=== PATIENT | female | born 1945 | race Caucasian/White ===

== ENCOUNTER 2019-05-05 16:23 | Inpatient (IN) | payer OTHER ==
[~2019-05-05] VITALS: Ht 157.5 cm; Wt 88.5 kg
[2019-05-05 16:25] VITALS: BP 122/63
[2019-05-05] MEDS ORDERED: KEFLEX500 M1 PO (16:29)
[2019-05-05] MEDS ORDERED: BENTYL 10 MG CA10 M1 PO (16:30)
[2019-05-05] MEDS ORDERED: ASPIR 8181 MG PO (16:30)
[2019-05-05] MEDS ORDERED: TYLENOL EXTRA500 MG PO (16:30)
[2019-05-05] MEDS ORDERED: TUMS PO ×2 (16:30)
[2019-05-05] MEDS ORDERED: OMEGA 3 1,0001 EACH PO (16:31)
[2019-05-05] MEDS ORDERED: FLEXERIL PO (16:31)
[2019-05-05] MEDS ORDERED: BENADRYL25 MG PO (16:31)
[2019-05-05] MEDS ORDERED: CARDIZEM CD120 MG PO (16:31)
[2019-05-05] MEDS ORDERED: FLONASE 0.05%50 MCG NASAL (16:32)
[2019-05-05] MEDS ORDERED: LASIX 40 MG TAB40 M2 PO (16:32)
[2019-05-05] MEDS ORDERED: GAS-X180 MG PO (16:32)
[2019-05-05] MEDS ORDERED: COZAAR 25 MG TA25 M1 PO (16:33)
[2019-05-05] MEDS ORDERED: SINGULAIR 10 MG10 M1 PO (16:33)
[2019-05-05] MEDS ORDERED: LOPERAMIDE 2 MG2 M1 PO (16:33)
[2019-05-05] MEDS ORDERED: IBUPROFEN 800800 M1 PO (16:33)
[2019-05-05] MEDS ORDERED: CLARITIN10 MG PO (16:33)
[2019-05-05] MEDS ORDERED: ZANTAC 150MG T150 MG PO (16:34)
[2019-05-05] MEDS ORDERED: PROPRANOLOL 1010 MG PO (16:34)
[2019-05-05] MEDS ORDERED: NEPHRO-VITE TA0.8 MG PO (16:34)
[2019-05-05] MEDS ORDERED: PROBIOTIC1 EAC1 PO (16:34)
[2019-05-05] MEDS ORDERED: PROTONIX40 M1 PO (16:34)
[2019-05-05] MEDS ORDERED: VITAMIN D3400 UNIT PO (16:35)
[2019-05-05] MEDS ORDERED: HALCION0.25 MG PO (16:35)
[2019-05-05] MEDS ORDERED: OCUVITE ADULT1 EAC1 PO (16:35)
--- NOTE | 2019-05-05 16:58 | NUR ---
THIS NURSE CALLED [facility] IN [place], [place]. THIS NURSE SPOKE WITH XAVI, WHO IS THE ICT QUALITY ASSURANCE ENGINEER FOR [facility]. XAVI STATED THAT "PT HAS HAD INCREASED CONFUSION SINCE Wednesday". XAVI STATED THAT PT HAS "FREQUENT UTIS". XAVI STATED THAT "WHEN THE HOME HEALTH NURSE VISITED THE PT TODAY, PT HAD A EMPTY POT ON THE HOT STOVE THAT SHE HAD FORGOTTEN ABOUT".
[2019-05-05 17:00] LABS: ABSOLUTE BASOPHILS 0.1 thou/uL (0.0-0.2); ABSOLUTE EOSINOPHILS 0.6 thou/uL (0.0-0.7); ABSOLUTE LYMPHOCYTES 1.3 thou/uL (0.8-5.3); ABSOLUTE MONOCYTES 0.6 thou/uL (0.0-1.2); ABSOLUTE NEUTROPHILS 5.9 thou/uL (1.6-8.1); BASOPHILS 1.6 %; EOSINOPHILS 6.5 %; HEMATOCRIT 38.8 % (37.0-47.0); HEMOGLOBIN 12.9 gm/dL (12.0-15.0); LYMPHOCYTES 15.5 %; MCH 28.6 pg (26.0-34.0); MCHC 33.3 g/dL (28.0-37.0); MCV 85.9 fL (80.0-100.0); MONOCYTES 7.2 %; MPV 8.3 fl. (7.2-11.1); NUCLEATED RBCS 0 /100WBC; PLATELET COUNT* 319 thou/uL (150-400); POLYS 69.2 %; RBC 4.52 mil/uL (4.20-5.00); RDW-CV 14.2 % (10.5-14.5); WBC 8.5 thou/uL (4.0-11.0)
--- NOTE | 2019-05-05 17:05 | NUR ---
DR. FELDER AT BEDSIDE WITH PT
[2019-05-05 17:07] LABS: INR 1.1; PROTIME 10.8 Seconds (9.20-11.50)
[2019-05-05 17:08] LABS: ANION GAP 9 mmol/L (7-16); BUN 22 mg/dL (7-18); CALCIUM 9.6 mg/dL (8.5-10.1); CHLORIDE 105 mmol/L (98-107); CO2 28 mmol/L (21-32); CREATININE 1.1 mg/dL (0.6-1.3); GLUCOSE 79 mg/dL (70-99); POTASSIUM 3.9 mmol/L (3.5-5.1); SODIUM 142 mmol/L (136-145)
[2019-05-05 17:18] LABS: ALBUMIN 3.5 g/dL (3.4-5.0); ALKALINE PHOSPHATASE 94 U/L (46-116); NT-PRO BRAIN NAT PEPTIDE 282 pg/mL (<300); SGOT 30 U/L (15-37); SGPT 43 U/L (30-65); TOTAL BILIRUBIN 0.4 mg/dL (<0.1-1.0); TOTAL PROTEIN 7.3 g/dL (6.4-8.2); TROPONIN-I LEVEL <0.06 ng/mL (<0.06)
[2019-05-05 18:14] LABS: URINE BILIRUBIN NEGATIVE (Negative); URINE BLOOD NEGATIVE (Negative); URINE CLARITY CLEAR; URINE COLOR YELLOW; URINE GLUCOSE-RANDOM NEGATIVE (Negative); URINE KETONES NEGATIVE (Negative); URINE LEUKOCYTES-REFLEX NEGATIVE (Negative); URINE NITRITE-REFLEX NEGATIVE (Negative); URINE PROTEIN NEGATIVE (Negative); URINE UROBILINOGEN 0.2 E.U./dl (0.2-1.0)
[2019-05-05 19:40] VITALS: BP 124/64
[2019-05-05 20:30] VITALS: BP 104/48
[2019-05-06] MEDS ORDERED: ACYCLOVIR 400400 MG PO (03:29)
[2019-05-06] MEDS ORDERED: CRANBERRY450 M1 PO (03:30)
[2019-05-06] MEDS ORDERED: FLUTICASONE-SA1 EAC3 INH (03:39)
[2019-05-06] MEDS ORDERED: MOBIC15 MG PO (03:45)
[2019-05-06] MEDS ORDERED: OXYBUTYNIN 5 MG5 M2 PO (03:49)
[2019-05-06] MEDS ORDERED: POTASSIUM20 PO (03:50)
[2019-05-06] MEDS ORDERED: CENTRUM SILVER1 EAC4 PO (03:55)
[2019-05-06] MEDS ORDERED: VANCOCIN 125 M125 M1 PO (03:57)
[2019-05-06 04:00] VITALS: BP 128/53
[2019-05-06 05:03] LABS: ABSOLUTE BASOPHILS 0.1 thou/uL (0.0-0.2); ABSOLUTE EOSINOPHILS 0.5 thou/uL (0.0-0.7); ABSOLUTE LYMPHOCYTES 1.7 thou/uL (0.8-5.3); ABSOLUTE MONOCYTES 0.5 thou/uL (0.0-1.2); ABSOLUTE NEUTROPHILS 5.1 thou/uL (1.6-8.1); BASOPHILS 1.1 %; EOSINOPHILS 6.7 %; HEMATOCRIT 33.8 % (37.0-47.0); HEMOGLOBIN 11.2 gm/dL (12.0-15.0); LYMPHOCYTES 21.9 %; MCH 28.7 pg (26.0-34.0); MCHC 33.1 g/dL (28.0-37.0); MCV 86.7 fL (80.0-100.0); MPV 8.3 fl. (7.2-11.1); NUCLEATED RBCS 0 /100WBC; PLATELET COUNT* 254 thou/uL (150-400); POLYS 64.3 %; RBC 3.89 mil/uL (4.20-5.00); RDW-CV 14.1 % (10.5-14.5); WBC 7.9 thou/uL (4.0-11.0)
[2019-05-06 05:17] LABS: CALCIUM 8.9 mg/dL (8.5-10.1); CREATININE 1.1 mg/dL (0.6-1.3); MAGNESIUM 1.5 mg/dL (1.8-2.4); POTASSIUM 3.7 mmol/L (3.5-5.1)
[2019-05-06 09:00] VITALS: BP 141/60
--- NOTE | 2019-05-06 09:00 | NUR ---
ASSUMED CARE OF PATIENT APPROX 0730. OX4, FORGETFUL. ABLE TO COMMUNICATE NEEDS TO STAFF. MED/SURG STATUS. O2 SATS >92% RA. ORTHO BOOT TO R LE, USING WALKER WITH TRANSFERS TO BSC. SPECIAL CONTACT ISOLATION FOR CDIFF MAINTAINED. PATIENT UP TO CHAIR, CALL LIGHT IN REACH. HOURLY ROUNDING FOR SAFETY AND PATIENT NEEDS.
--- NOTE | 2019-05-06 11:19 | EKG ---
[place] [address] ELECTROCARDIOGRAM REPORT Name: MIC IBRAHIM Room: [address] ADM IN .R.#: [id number] Admission: 05/05/19 Attend Phys: Tasha Mae MD Discharge: Date of : 41 Report #: [id number] THIS REPORT FOR: //name// [facility] ED Test Date: 2019-05-05 Test Time: 17:03:31 Pat Name: MIC IBRAHIM Department: Room: [facility] Gender: F Head Gauge Unit Operator: PREMA : 1945 Requested By: Jered Garduno Order Number: [id number] MD: Jordan Baeza Measurements Intervals [place] Rate: 60 P: 28 NE: 187 QRS: 9 QRSD: 87 T: -18 QT: 455 QTc: 455 Interpretive Statements Sinus rhythm Probable left atrial enlargement Borderline T abnormalities, inferior leads No previous ECG available for comparison Electronically Signed On 05-06-2019 11:19:46 CDT by Jordan Baeza [email or web address] <ELECTRONICALLY SIGNED> By: Jaqueline Baeza MD, [facility] 05/06/19 1119 02 02 Jaqueline Baeza MD, [facility] /EPI
--- NOTE | 2019-05-06 12:08 | NUR ---
INITIAL ASSESSMENT: Pt evaluated for d/c planning needs. Reviewed chart and spoke with nurse and pt. Pt states she lives alone in house and was independent with ADL's prior to admission to the hospital. Pt has walker, w/c and CPAP at home. Pt did not bring her CPAP to the hospital with her. Notified RT. Pt said she was hospitalized recently at [facility] and then went to [facility] for about 4 weeks. Pt returned home with [facility] and is currently on service with them. Pt said she has a daughter who checks on her frequently. Pt is hopeful she will be able to return home on d/c from hospital. Will remain available to assist as needed.
[2019-05-06 15:36] VITALS: BP 115/82
[2019-05-07 04:00] VITALS: BP 139/72
--- NOTE | 2019-05-07 06:15 | NUR ---
PATIENT SLEPT MOST OF THE NIGHT. IV IS NOW SALINE LOCKED. PATIENT HAD NO STOOLS THIS SHIFT. WILL CONTINUE TO MONITOR.
--- NOTE | 2019-05-07 09:00 | NUR ---
ASSUMED CARE AFTER REPORT APPROX 0730. A&OX4, ABLE TO COMMUNICATE NEEDS TO STAFF. MED/SURG STATUS. SPECIAL CONTACT ISOLATION FOR CDIFF MAINTAINED. TRANSFERED FROM BED TO CHAIR WITH WALKER AND SBA. NO C/O PAIN, DIZZINESS, N/V, SOA OR OTHER DISTRESS. CALL LIGHT IN REACH. HOURLY ROUNDING FOR SAFETY AND PATIENT NEEDS.
[2019-05-07 09:40] VITALS: BP 146/58
[2019-05-07 15:32] VITALS: BP 162/70
--- NOTE | 2019-05-07 18:36 | NUR ---
PATIENT REPORTS THAT HER DOCTOR PRESCRIBED HER PROPANOLOL FOR HER "SPELLS." PATIENT STATES THAT SHE HAS HAD THESE FOR MOST OF HER LIFE AND STATES THAT WHEN SHE WAS A BABY SHE WAS IN THE HOSPITAL FOR 3 WEEKS. PATIENT STATES, "THEY SAID I BASICALLY SWALLOWED MY TONGUE." PATIENT STATES THAT HER DOCTOR HAS INCREASED THE DOSAGE OF PROPANOLOL TWO OR THREE TIMES AND SINCE THEN, SHE HASN'T HAD ANY MORE "SPELLS."
[2019-05-07 20:00] VITALS: BP 152/69
[2019-05-08] VITALS: BP 149/68
[2019-05-08 04:49] LABS: ABSOLUTE BASOPHILS 0.1 thou/uL (0.0-0.2); ABSOLUTE EOSINOPHILS 0.4 thou/uL (0.0-0.7); ABSOLUTE LYMPHOCYTES 1.3 thou/uL (0.8-5.3); ABSOLUTE MONOCYTES 0.6 thou/uL (0.0-1.2); ABSOLUTE NEUTROPHILS 7.6 thou/uL (1.6-8.1); BASOPHILS 0.9 %; EOSINOPHILS 4.3 %; HEMATOCRIT 36.1 % (37.0-47.0); LYMPHOCYTES 13.3 %; MCH 28.7 pg (26.0-34.0); MCHC 33.3 g/dL (28.0-37.0); MCV 86.1 fL (80.0-100.0); MONOCYTES 6.1 %; MPV 8.4 fl. (7.2-11.1); NUCLEATED RBCS 0 /100WBC; PLATELET COUNT* 305 thou/uL (150-400); POLYS 75.4 %; RDW-CV 14.1 % (10.5-14.5); WBC 10.1 thou/uL (4.0-11.0)
[2019-05-08 05:05] LABS: CALCIUM 9.4 mg/dL (8.5-10.1); CREATININE 0.8 mg/dL (0.6-1.3); MAGNESIUM 1.7 mg/dL (1.8-2.4); POTASSIUM 3.5 mmol/L (3.5-5.1)
--- NOTE | 2019-05-08 06:23 | NUR ---
PATIENT SLEPT MOST OF THE NIGHT. IV REMAINS SALINE LOCKED. PATIENT HAD NO COMPLAINTS OF PAIN. WILL CONTINUE TO MONITOR.
[2019-05-08 08:00] VITALS: BP 142/71
--- NOTE | 2019-05-08 14:46 | NUR ---
CONTINUE TO FOLLOW, MET WITH PT AND SPOKE WITH DTSanford/SHANTA OVER THE PHONE. THEY ARE INTERESTED IN PT GOING BACK TO [facility]. DTR STATED PT HAS BEEN HOME FROM [facility] SINCE 04/13, FAMILY STAYED WITH HER FOR 2 WEEKS, PT HAS DECLINED SINCE. IS CONFUSED TO EVENTS AND TIME. ANSWERS QUESTIONS BUT THINKS SHE WENT HOME FROM [facility] FRI. NOT ABLE TO GIVE GOOD HX. CALLED AND FAXED REFERRAL TO [facility], AWAITING OT EVAL. DISCUSSED WITH DR FELDER, REC: IS SNF. AWAIT INS AUTH
[2019-05-08 16:00] VITALS: BP 157/64
[2019-05-08 20:10] VITALS: BP 160/73
[2019-05-09] VITALS (8 sets, daily range): BP systolic 110–154; BP diastolic 62–90
[2019-05-09 05:23] LABS: CALCIUM 9.5 mg/dL (8.5-10.1); CREATININE 0.8 mg/dL (0.6-1.3); MAGNESIUM 1.9 mg/dL (1.8-2.4); POTASSIUM 4.5 mmol/L (3.5-5.1)
--- NOTE | 2019-05-09 05:39 | NUR ---
PT CARE ASSUMED AT 1930. SAT MAINTAINED IN RA. CALL LIGHT WITHIN REACH AND SOB. PT IS FORGETFUL. ISOLATION MAINTAINED FOR C. DIFF. C/O PAIN, MEDICATION GIVEN PER EMAR. HOURLY ROUNDING DONE FOR PT SAFETY.
[2019-05-09 12:57] LABS: ABSOLUTE BASOPHILS 0.1 thou/uL (0.0-0.2); ABSOLUTE EOSINOPHILS 0.2 thou/uL (0.0-0.7); ABSOLUTE MONOCYTES 0.9 thou/uL (0.0-1.2); ABSOLUTE NEUTROPHILS 9.2 thou/uL (1.6-8.1); BASOPHILS 0.8 %; EOSINOPHILS 1.8 %; HEMATOCRIT 36.2 % (37.0-47.0); HEMOGLOBIN 12.2 gm/dL (12.0-15.0); LYMPHOCYTES 8.9 %; MCH 28.7 pg (26.0-34.0); MCHC 33.6 g/dL (28.0-37.0); MCV 85.6 fL (80.0-100.0); MONOCYTES 7.8 %; MPV 8.2 fl. (7.2-11.1); NUCLEATED RBCS 0 /100WBC; PLATELET COUNT* 313 thou/uL (150-400); POLYS 80.7 %; RBC 4.23 mil/uL (4.20-5.00); RDW-CV 14.1 % (10.5-14.5); WBC 11.4 thou/uL (4.0-11.0)
--- NOTE | 2019-05-09 15:06 | NUR ---
CONTINUE TO FOLLOW. PT'S INSURANCE DENIED SNF. SPOKE WITH DTR/SHANTA TO DISCUSS. PT NOT READY FOR DC TODAY. DTR UPSET, OFFERED OPTIONS IE: HOME WITH HH AND FAMILY SUPPORT; ASSISTED LIVING; LTC. DTR INTERESTED IN ASSISTED LIVING. HAD GIVEN OPTIONS YESTERDAY FOR THAT BUT REVISITED THOSE AND GAVE NUMBERS. RECEIVED CALL FROM [facility]. INFO GIVEN AND FAXED H/P, FACE SHEET. SHE DID ASK THAT PT HAVE A CDIFF RECHECK IF POSSIBLE. ORDER RECEIVED FROM DR FELDER TO RECHECK. UPDATED NURSE
--- NOTE | 2019-05-09 18:53 | NUR ---
PT CONVERTED FROM SR TO AFIB AT 1800. EKG DONE. AFIB RVR NOTED HR 178. BP TAKEN SEE CHART. CARDIZEM DRIP STARTED AT 10CC PER HOUR
--- NOTE | 2019-05-09 19:05 | NUR ---
CARDIZEM DRIP BUMPED TO 15 CC PER HOUR AT THIS MOMENT
[2019-05-09 20:35] LABS: URINE BILIRUBIN NEGATIVE (Negative); URINE BLOOD TRACE (Negative); URINE CLARITY CLEAR; URINE COLOR YELLOW; URINE GLUCOSE-RANDOM NEGATIVE (Negative); URINE KETONES NEGATIVE (Negative); URINE LEUKOCYTES-REFLEX NEGATIVE (Negative); URINE NITRITE-REFLEX NEGATIVE (Negative); URINE PROTEIN NEGATIVE (Negative); URINE SPECIFIC GRAVITY <= 1.005 (1.005-1.030); URINE UROBILINOGEN 0.2 E.U./dl (0.2-1.0)
[2019-05-10] VITALS: BP 137/79
--- NOTE | 2019-05-10 00:19 | NUR ---
PT CARE ASSUMED AT 1930. SAT MAINTAINED IN RA. PT IS ALERT AND ORIENTED X3 AND FORGETFUL. CALL LIGHT WITHIN REACH AND BED IN LOW POSITION. HR RUNNING FROM 180''S-200 AFTER AN HOUR OF CARDIZEM DRIP. CALLED DR. BRAUN, GOT AN ORDER FOR IV DIGOXIN. HELD PO CARDIZEM AT THIS TIME.
[2019-05-10 04:00] VITALS: BP 133/67
[2019-05-10 05:30] LABS: CALCIUM 9.8 mg/dL (8.5-10.1); CREATININE 0.8 mg/dL (0.6-1.3); MAGNESIUM 1.9 mg/dL (1.8-2.4); POTASSIUM 4.2 mmol/L (3.5-5.1)
--- NOTE | 2019-05-10 07:05 | NUR ---
CHANGE OF SHIFT, BEDSIDE REPORT GIVEN PATIENT SEEN AT BEDSIDE, IN BED AND RESTING ASSUMED PATIENT CARE
[2019-05-10 08:00] VITALS: BP 151/43
--- NOTE | 2019-05-10 10:24 | EKG ---
[place] [address] ELECTROCARDIOGRAM REPORT Name: PATRICEMIC Zain Room: [address] ADM IN M.R.#: [id number] Admission: 05/05/19 Attend Phys: Tasha Mae MD Discharge: Date of : 41 Report #: [id number] THIS REPORT FOR: //name// [facility] Test Date: 2019-05-09 Test Time: 18:10:36 Pat Name: MIC IBRAHIM Department: Room: [address] Gender: F Underwater Roboticist: KF : 1945 Requested By: Sidney Cornell Order Number: [id number] Diya MD: Narciso Holm Measurements Intervals [place] Rate: 178 P: GA: QRS: 31 QRSD: 69 T: 251 QT: 224 QTc: 386 Interpretive Statements Atrial fibrillation with rapid V-rate Repolarization abnormality, prob rate related Baseline wander in lead(s) V6 Compared to ECG 05/05/2019 17:03:31 Early repolarization now present Sinus rhythm no longer present Electronically Signed On 05-10-2019 10:24:36 CDT by Narciso Holm [email or web address] <ELECTRONICALLY SIGNED> By: Narciso Holm MD, FACC 05/10/19 1024 1810 1810 Narciso Holm MD, [facility] /EPI
[2019-05-10 12:48] VITALS: BP 147/64
--- NOTE | 2019-05-10 13:31 | 2DMMODE ---
[place] [address] 2 D/M-MODE ECHOCARDIOGRAM Name: MIC IBRAHIM Room: [address] IN [facility]#: [id number] Admission: 05/05/19 Attend Phys: Tasha Mae MD Discharge: Date of : 41 Date of Service: 05/10/19 1331 Report #: [id number] THIS REPORT FOR: //name// APPROVED REPORT Study performed: 05/10/2019 11:10:47 EXAM: Comprehensive 2D, Doppler, and color-flow Echocardiogram Patient Location: In-Patient Room #: [facility] Status: routine BSA: 1.89 HR: 61 bpm BP: 151/43 mmHg Rhythm: NSR Other Information Study Quality: Good Indications Atrial Fibrillation 2D Dimensions IVSd: 11.76 (7-11mm) LVOT Diam: 19.94 (18-24mm) LVDd: 41.98 mm PWd: 10.30 (7-11mm) Ascending Ao: 31.99 (22-36mm) LVDs: 23.78 (25-40mm) Aortic Root: 33.15 mm Volumes Left Atrial Volume (Systole) LA ESV Index: 23.70 mL/m2 Aortic Valve AoV Peak Jose.: 2.00 m/s AO Peak Gr.: 15.97 mmHg LVOT Max P.73 mmHg AO Mean Gr.: 9.12 mmHg LVOT Mean P.25 mmHg LVOT Max V: 1.92 m/s AO V2 VTI: 39.29 cm LVOT Mean V: 1.24 m/s MARILIA (VTI): 2.85 cm2 LVOT V1 VTI: 35.90 cm AI Garza: 1.68 m/s2 AI PHT: 671.44 ms Mitral Valve E/A Ratio: 0.84 [place] [address] 2 D/M-MODE ECHOCARDIOGRAM Name: MIC IBRAHIM Room: [address] IN ..#: [id number] Admission: 05/05/19 Attend Phys: Tasha Mae MD Discharge: Date of : 41 Date of Service: 05/10/19 1331 Report #: [id number] MV Decel. Time: 225.84 ms MV E Max Jose.: 0.75 m/s MV PHT: 65.49 ms MVA (PHT): 3.36 cm2 TDI E/Lateral E': 6.82 E/Medial E': 8.33 Medial E' Jose.: 0.09 m/s Lateral E' Jose.: 0.11 m/s Pulmonary Valve PV Peak Jose.: 1.08 m/s PV Peak Gr.: 4.63 mmHg Tricuspid Valve RAP Estimate: 5.00 mmHg TR Peak Gr.: 26.86 mmHg RVSP: 31.00 mmHg PA Pressure: 31.00 mmHg Left Ventricle The left ventricle is normal size. There is normal LV segmental wall motion. There is normal left ventricular wall thickness. Left ventricular systolic function is normal. The left ventricular ejection fraction is within the normal range. LVEF is 65-70%. Grade I - abnormal relaxation pattern. Right Ventricle The right ventricle is normal size. The right ventricular systolic function is normal. Atria The left atrium size is normal. The right atrium size is normal. Aortic Valve The Aortic valve is sclerotic. Mild aortic regurgitation. There is no aortic valvular stenosis. Mitral Valve The mitral valve is normal in structure. Trace mitral regurgitation. No evidence of mitral valve stenosis. Tricuspid Valve The tricuspid valve is normal in structure. Trace tricuspid regurgitation. estimated pa pressure 35 [place] [address] 2 D/M-MODE ECHOCARDIOGRAM Name: MIC IBRAHIM Room: [address]#: [id number] Admission: 05/05/19 Attend Phys: Tasha Mae MD Discharge: Date of : 41 Date of Service: 05/10/19 1331 Report #: [id number] Pulmonic valve is not well visualized. There is no pulmonic valvular regurgitation. Great Vessels The aortic root is normal in size. IVC is normal in size and collapses >50% with inspiration. Pericardium There is no pericardial effusion. <Conclusion> LVEF is 65-70%. The Aortic valve is sclerotic. Mild aortic regurgitation. <ELECTRONICALLY SIGNED> By: Narciso Holm MD, [facility] 05/10/19 1331 1331 30 Narciso Holm MD, FACC /INF
--- NOTE | 2019-05-10 13:58 | NUR ---
CONTINUE TO FOLLOW, RECEIVED CALL FROM PT'S DTR/SHANTA. DISCUSSED DC PLAN TO [facility]. DTR REQUESTED MORE INFO ON PRIVATE DUTY. DID GO OVER ST [facility] AND SUGGESTED IF PT WERE AT HOME MAY NEED 24/7 SUPERVISION AT THIS TIME. UPDATED PT, SHE SEEMED IN AGREEMENT WITH PLAN TEMPORARILY. ANTICIPATE DC END OF WEEK. STILL AWAITING CDIFF REPEAT TEST
[2019-05-10 15:58] VITALS: BP 146/60
[2019-05-10 20:20] VITALS: BP 132/64
[2019-05-11] VITALS (7 sets, daily range): BP systolic 117–165; BP diastolic 50–77
--- NOTE | 2019-05-11 07:45 | NUR ---
PT CARE ASSUMED AT 1930. SAT MAINTAINED IN RA. PT IS FORGETFUL. C/O PAIN, MEDICATION GIVEN PER EMAR. CALL LIGHT WITHIN REACH AND BED IN LOW POSITION. HOURLY ROUNDING DONE FOR PT SAFETY.
--- NOTE | 2019-05-11 16:41 | NUR ---
PT SITTING IN RECLINER THIS SHIFT. PT C/O OF LEFT NECK PAIN. MUSCLE RELAXANT GIVEN PER EMAR. VSS. AFEBRILE. STOOL SAMPLE COLLECTED AND SENT TO LAB.
[2019-05-12] VITALS: BP 136/50
[2019-05-12 04:00] VITALS: BP 144/52
[2019-05-12 05:05] LABS: HEMATOCRIT 35.5 % (37.0-47.0); HEMOGLOBIN 11.6 gm/dL (12.0-15.0); MCH 28.1 pg (26.0-34.0); MCHC 32.7 g/dL (28.0-37.0); MCV 85.8 fL (80.0-100.0); MPV 8.3 fl. (7.2-11.1); NUCLEATED RBCS 0 /100WBC; RBC 4.13 mil/uL (4.20-5.00); WBC 11.2 thou/uL (4.0-11.0)
[2019-05-12 05:18] LABS: CALCIUM 9.9 mg/dL (8.5-10.1); CREATININE 0.9 mg/dL (0.6-1.3); MAGNESIUM 1.8 mg/dL (1.8-2.4); POTASSIUM 3.5 mmol/L (3.5-5.1)
[2019-05-12 05:37] LABS: PLATELET COUNT* 398 thou/uL (150-400)
[2019-05-12 05:39] LABS: ABSOLUTE BASOPHILS 0.1 thou/uL (0.0-0.2); ABSOLUTE EOSINOPHILS 0.6 thou/uL (0.0-0.7); ABSOLUTE LYMPHOCYTES 1.5 thou/uL (0.8-5.3); ABSOLUTE MONOCYTES 0.8 thou/uL (0.0-1.2); ABSOLUTE NEUTROPHILS 8.1 thou/uL (1.6-8.1); EOSINOPHILS 5.6 %; LYMPHOCYTES 13.2 %; MONOCYTES 7.5 %; POLYS 72.7 %
--- NOTE | 2019-05-12 07:47 | NUR ---
PT GIVEN FLEXERIL AND TYLENOL X 2 THIS SHIFT FOR PAIN. CHECKED WITH LAB ABOUT CDIFF SAMPLE. LAB REPORTED NEITHER OF THE 2 STOOL SAMPLES HAVE "BEEN RUNNY ENOUGH TO PERFORM CDIFF TESTING." PT TRACING SR ON MONITOR ALL NIGHT. CALL LIGHT IN REACH. HOURLY ROUNDING FOR SAFETY.
[2019-05-12 08:00] VITALS: BP 121/57
--- NOTE | 2019-05-12 09:25 | NUR ---
SPOKE WITH ANA/LAB TO CHECK ON CDIFF SPECIMEN AND RESULT. SHE SAID THEY FOUND SPECIMEN, THAT IT HAD GOTTEN MISLABELED. IT WILL BE SENT OFF THIS AM BY LEAD PRODUCER AND RESULT WILL BE BACK LATER TODAY OR TOMORROW. PT NOT ABLE TO DC TO ASSISTED LIVING UNTIL RESULT IS NEG. WILL FOLLOW
--- NOTE | 2019-05-12 11:14 | EKG ---
[place] [address] ELECTROCARDIOGRAM REPORT Name: ABBEYMIC LEBRON Room: [address] ADM IN M.R.#: [id number] Admission: 05/05/19 Attend Phys: Tasha Mae MD Discharge: Date of : 41 Report #: [id number] THIS REPORT FOR: //name// [facility] Test Date: 2019-05-11 Test Time: 13:23:13 Pat Name: MIC IBRAHIM Department: Room: [address] Gender: F [place] Layer: : 1945 Requested By: Narciso Holm Order Number: [id number] Reading MD: Narciso Holm Measurements Intervals [place] Rate: 68 P: -8 [place]: 159 QRS: 20 QRSD: 79 T: -47 QT: 429 QTc: 457 Interpretive Statements Sinus rhythm Abnormal R-wave progression, early transition Borderline repolarization abnormality Compared to ECG 05/09/2019 18:10:36 Atrial fibrillation no longer present Electronically Signed On 05-12-2019 11:14:44 CDT by Narciso Holm [email or web address] <ELECTRONICALLY SIGNED> By: Narciso Holm MD, [facility] 05/12/19 1114 1323 1323 Narciso Holm MD, [facility] /EPI
--- NOTE | 2019-05-12 11:22 | EKG ---
[place] [address] ELECTROCARDIOGRAM REPORT Name: MIC IBRAHIM Room: [address] ADM IN M.R.#: [id number] Admission: 05/05/19 Attend Phys: Tasha Mae MD Discharge: Date of : 41 Report #: [id number] THIS REPORT FOR: //name// [facility] Test Date: 2019-05-12 Test Time: 09:00:25 Pat Name: MIC IBRAHIM Department: Room: [address] Gender: F Screw Remover: : 1945 Requested By: Narciso Holm Order Number: [id number] Diya MD: Narciso Holm Measurements Intervals [place] Rate: 68 P: -16 [place]: 143 QRS: 8 QRSD: 91 T: -11 QT: 502 QTc: 535 Interpretive Statements Sinus rhythm Probable LVH with secondary repol abnrm Prolonged QT interval Electronically Signed On 05-12-2019 11:22:33 CDT by Narciso Holm [email or web address] <ELECTRONICALLY SIGNED> By: Narciso Holm MD, [facility] 05/12/19 1122 9 9 Narciso Holm MD, FACC /EPI
--- NOTE | 2019-05-12 12:58 | NUR ---
Nutrition: Pt admitted with c. diff. Assessed for LOS. Eating 2gm Na diet well. Albumin 3.5. Wt: 190#. Pt awaiting to return to assisted living once c. diff is negative. No nutrition interventions needed at this time. Mild risk.
--- NOTE | 2019-05-12 14:28 | CON ---
[address] [address] CONSULTATION Name: MIC IBRAHIM Room: [address] IN ..#: [id number] Admission: 05/05/19 Attend Phys: Tasha Mae MD Discharge: Date of : 41 Report #: [id number] THIS REPORT FOR: //name// CC: GONZALES Mae DATE OF SERVICE: 05/10/2019 CARDIOLOGY CONSULTATION HISTORY OF PRESENT ILLNESS: The patient is a 74-year-old single white female who I was asked to see in the hospital today after she had an episode of atrial fibrillation. The patient states she was diagnosed with mitral valve prolapse back in the . She was doing well until recently she was undergoing a sleep study. She apparently got up during the night and injured her foot. She was admitted to [facility] and found to have a foot fracture. She was admitted to [facility] last week. There, she began to feel weak and had loose stools. She became confused. She was brought over here to [facility] and admitted. She was diagnosed with C. difficile colitis. Last night, she went into atrial fibrillation with rapid ventricular response rate. She was placed on IV diltiazem. I was asked to see her for further evaluation and treatment. She denies a history of myocardial infarction, chest pain, shortness of breath. She denied any palpitations last night, lightheadedness. PAST MEDICAL HISTORY: She has had cholecystectomy, back surgery, tonsillectomy. There is no history of hypertension, diabetes. MEDICATIONS: Over to [place] included diltiazem CD, losartan, propranolol, ranitidine, aspirin. ALLERGIES: SHE HAS INTOLERANCE TO CODEINE AND MORPHINE. FAMILY HISTORY: Her mother and father had heart disease. SOCIAL HISTORY: She is , lives in [place], [place]. No smoking or alcohol abuse. REVIEW OF SYSTEMS: She has had no history of stroke or asthma. She has had a hiatal hernia. No history of liver disease, kidney disease, cancer, psychiatric illness, chronic skin condition. PHYSICAL EXAMINATION: GENERAL: Revealed an elderly frail-appearing female, lying in bed. She appeared in no distress. VITAL SIGNS: Blood pressure 130/70, pulse is 80 [place] [address] CONSULTATION Name: MIC IBRAHIM Room: [address]#: [id number] Admission: 05/05/19 Attend Phys: Tasha Mae MD Discharge: Date of : 41 Report #: [id number] RESPIRATIONS: Nonlabored. HEENT: She is anicteric. Conjunctivae are pink. Mucous membranes appear moist. NECK: Veins do not appear distended. No carotid bruits. CHEST: Clear to auscultation. CARDIOVASCULAR: Regular rate and rhythm. ABDOMEN: Soft. EXTREMITIES: Had no pedal edema. SKIN: Cool and dry. NEUROLOGIC: Nonfocal. LYMPH: No adenopathy. MUSCULOSKELETAL: No joint effusion. DIAGNOSTIC DATA: Her ECG on admission 3 days ago showed a sinus rhythm, nonspecific T-wave changes. Last night, she appeared to go into atrial fibrillation with rapid ventricular response rate. Today, she appears to be in a sinus rhythm. Her workup so far, she had a portable chest x-ray yesterday that showed cardiomegaly, poor inspiration, no pulmonary edema. LABORATORY WORK: Sodium 142, BUN 10, creatinine 0.8. Liver function studies were normal. Troponin 0.06. TSH 1.7. White blood cell count 11.4, hemoglobin 12.2. IMPRESSION AND RECOMMENDATIONS: 1. Atrial fibrillation. I would check echocardiogram and thyroid function studies. I would switch the patient from Inderal to sotalol. I would recommend anticoagulation. 2. Recent foot fracture following a fall. 3. Hypertension. The patient has been on a calcium anai, ARB and beta anai. 4. Clostridium difficile colitis. 5. Episode of confusion. <ELECTRONICALLY SIGNED> By: Narciso Holm MD, [facility] 05/12/19 1428 0826 [id number] Holm MD, FAC /nt
--- NOTE | 2019-05-12 14:41 | NUR ---
SPOKE WITH ANA/LAB RE: CDIFF SPECIMEN. IT WAS MISLABELED AND WAS SENT OUT TO [facility] THIS AM. RESULT MAY BE BACK TODAY LATE OR TOMORROW. PT UNABLE TO DC TO [facility] UNTIL IT IS NEG. UPDATE TO [facility] CALLED. THEY ARE ABLE TO ACCEPT PT ON SAT. UPDATED PT AND DTR/SHANTA ALSO. ALSO CHECKED ON FOR PT, SHE DOESN'T WANT TO CONTINUE WITH [facility] AT HOME. [facility] WORKS CLOSELY WITH [facility] AND THEY ARE ABLE TO ACCEPT PT. PT IN AGREEMENT. IF PT ABLE TO DC OVER W/E ONCE CDIFF LAB BACK AND NEG, CONTACTS ARE FOLLOWS [facility] [phone] FAX [phone] DTR SHANTA RAMOS [phone] [facility] [phone] FAX [phone] PT WILL NEED W/C VAN TRANSPORT
[2019-05-12 15:51] VITALS: BP 125/51
[2019-05-12 20:00] VITALS: BP 135/77
[2019-05-13] VITALS: BP 132/56
[2019-05-13 04:00] VITALS: BP 122/43
--- NOTE | 2019-05-13 11:11 | NUR ---
Following for d/c planning needs. Received multiple phone calls from pt's daughter. Plan is for pt to go to [facility] on d/c from hospital. Physician has not rounded yet today. C-diff was negative. Will arrange w/c van transport on d/c. No family is available to transport. Called [facility] and faxed paperwork. Will fax orders when available.
[2019-05-13] MEDS ORDERED: VANCOCIN 125 M125 M1 PO (13:42)
[2019-05-13] MEDS ORDERED: ELIQUIS5 MG PO (13:42)
[2019-05-13] MEDS ORDERED: SORINE 80 MG TA80 M1 PO (13:42)
[2019-05-13] MEDS ORDERED: LOPERAMIDE 2 MG2 M1 PO (13:43)
[2019-05-13 14:05] VITALS: BP 122/43
== END 2019-05-13 16:48 | disposition home health service (06) | DRG 871 ==
LOC: M.ERS 16:23 → M.TBA-ER 17:34 → M.2W 17:34
PROVIDERS: Emergency Medicine Emergency Medical Services; ADMIT Family Medicine
DX: A41.9 Sepsis, unspecified organism (principal); G93.41 Metabolic encephalopathy; A04.72 Enterocolitis due to Clostridium difficile, not specified as recurrent; N17.9 Acute kidney failure, unspecified; N39.0 Urinary tract infection, site not specified; K21.9 Gastro-esophageal reflux disease without esophagitis; N18.3 Chronic kidney disease, stage 3 (moderate); K58.9 Irritable bowel syndrome, unspecified; I48.91 Unspecified atrial fibrillation; E83.42 Hypomagnesemia; J44.9 Chronic obstructive pulmonary disease, unspecified; G47.33 Obstructive sleep apnea (adult) (pediatric); Z88.6 Allergy status to analgesic agent; Z88.8 Allergy status to other drugs, medicaments and biological substances; Z82.49 Family history of ischemic heart disease and other diseases of the circulatory system; Z79.899 Other long term (current) drug therapy

== ENCOUNTER 2019-06-15 11:23 | Inpatient (IN) | payer OTHER ==
[~2019-06-15] VITALS: Ht 160 cm; Wt 81.6 kg
--- NOTE | ~2019-06-15 | PROC ---
[address] [address] PROCEDURE REPORT Name: MIC IBRAHIM Room: [address] IN .R.#: [id number] Admission: 06/15/19 Attend Phys: Sidney Cornell MD Discharge: 06/17/19 Date of : 41 Report #: [id number] THIS REPORT FOR: //name// For GI report, please see the Provation report in Perceptive 7 content. By: 1547Medical Records Staff SONNY /MILAD
[~2019-06-15 11:23] MED LIST: ACYCLOVIR 400400 MG PO; ASPIR 8181 MG PO; BENADRYL25 MG PO; BENTYL 10 MG CA10 M1 PO; CARDIZEM CD120 MG PO; CENTRUM SILVER1 EAC4 PO; CLARITIN10 MG PO; COZAAR 25 MG TA25 M1 PO; CRANBERRY450 M1 PO; ELIQUIS5 MG PO; FLEXERIL PO; FLONASE 0.05%50 MCG NASAL; FLUTICASONE-SA1 EAC3 INH; GAS-X180 MG PO; HALCION0.25 MG PO; IBUPROFEN 800800 M1 PO; KEFLEX500 M1 PO; LASIX 40 MG TAB40 M2 PO; LOPERAMIDE 2 MG2 M1 PO; MOBIC15 MG PO; NEPHRO-VITE TA0.8 MG PO; OCUVITE ADULT1 EAC1 PO; OMEGA 3 1,0001 EACH PO; OXYBUTYNIN 5 MG5 M2 PO; POTASSIUM20 PO; PROBIOTIC1 EAC1 PO; PROPRANOLOL 1010 MG PO; PROTONIX40 M1 PO; SINGULAIR 10 MG10 M1 PO; SORINE 80 MG TA80 M1 PO; TUMS PO; TYLENOL EXTRA500 MG PO; VANCOCIN 125 M125 M1 PO; VITAMIN D3400 UNIT PO; ZANTAC 150MG T150 MG PO
[2019-06-15 11:24] VITALS: BP 121/47
[2019-06-15] MEDS ORDERED: ADVAIR HFA 230M12 GM INH (11:30)
[2019-06-15 12:00] LABS: ABSOLUTE BASOPHILS 0.1 thou/uL (0.0-0.2); ABSOLUTE EOSINOPHILS 0.2 thou/uL (0.0-0.7); ABSOLUTE LYMPHOCYTES 1.2 thou/uL (0.8-5.3); ABSOLUTE MONOCYTES 0.9 thou/uL (0.0-1.2); ABSOLUTE NEUTROPHILS 11.6 thou/uL (1.6-8.1); EOSINOPHILS 1.4 %; HEMATOCRIT 26.2 % (37.0-47.0); HEMOGLOBIN 8.6 gm/dL (12.0-15.0); LYMPHOCYTES 8.4 %; MCH 25.7 pg (26.0-34.0); MONOCYTES 6.2 %; MPV 7.6 fl. (7.2-11.1); NUCLEATED RBCS 0 /100WBC; PLATELET COUNT* 535 thou/uL (150-400); RBC 3.36 mil/uL (4.20-5.00); RDW-CV 16.9 % (10.5-14.5)
[2019-06-15 12:08] LABS: ANION GAP 11 mmol/L (7-16); BUN 12 mg/dL (7-18); CALCIUM 9.7 mg/dL (8.5-10.1); CHLORIDE 102 mmol/L (98-107); CO2 24 mmol/L (21-32); GLUCOSE 130 mg/dL (70-99); POTASSIUM 3.6 mmol/L (3.5-5.1); SODIUM 137 mmol/L (136-145)
[2019-06-15 12:19] LABS: ALBUMIN 2.9 g/dL (3.4-5.0); ALKALINE PHOSPHATASE 106 U/L (46-116); LIPASE 75 U/L (73-393); MAGNESIUM 1.8 mg/dL (1.8-2.4); NT-PRO BRAIN NAT PEPTIDE 150 pg/mL (<300); SGOT 17 U/L (15-37); SGPT 28 U/L (30-65); TOTAL BILIRUBIN 0.5 mg/dL (<0.1-1.0); TOTAL PROTEIN 7.4 g/dL (6.4-8.2); TROPONIN-I LEVEL <0.06 ng/mL (<0.06)
--- NOTE | 2019-06-15 17:24 | EKG ---
[place] [address] ELECTROCARDIOGRAM REPORT Name: ABBEYMIC LEBRON Room: [place] [address] ADM IN .R.#: [id number] Admission: 06/15/19 Attend Phys: Sidney Cornell MD Discharge: Date of : 41 Report #: [id number] THIS REPORT FOR: //name// [facility] ED Test Date: 2019-06-15 Test Time: 11:32:57 Pat Name: MIC IBRAHIM Department: Room: [facility] Gender: F Station Master: EV : 1945 Requested By: Jered Garduno Order Number: [id number] MD: Tee Paulson Measurements Intervals [place] Rate: 69 P: -1 [place]: 157 QRS: 15 QRSD: 81 T: 6 QT: 464 QTc: 497 Interpretive Statements Sinus rhythm Borderline T abnormalities, anterior leads Baseline wander in lead(s) V4 Compared to ECG 05/12/2019 09:00:25 T-wave abnormality now present Electronically Signed On 06-15-2019 17:23:51 CDT by Tee Paulson [email or web address] <ELECTRONICALLY SIGNED> By: Tee Paulson MD, FACC 06/15/19 1723 1132 1132 Tee Paulson MD, FACC /EPI
[2019-06-15 18:32] VITALS: BP 129/50
[2019-06-15 19:50] VITALS: BP 103/63
[2019-06-16] VITALS (7 sets, daily range): BP systolic 90–144; BP diastolic 45–69
[2019-06-16 04:46] LABS: URINE BILIRUBIN NEGATIVE (Negative); URINE BLOOD NEGATIVE (Negative); URINE CLARITY SL CLOUDY; URINE COLOR YELLOW; URINE GLUCOSE-RANDOM NEGATIVE (Negative); URINE KETONES NEGATIVE (Negative); URINE LEUKOCYTES-REFLEX 1+ (Negative); URINE NITRITE-REFLEX NEGATIVE (Negative); URINE PROTEIN NEGATIVE (Negative); URINE UROBILINOGEN 0.2 E.U./dl (0.2-1.0)
[2019-06-16 04:53] LABS: AMP/METHAMP Negative (Negative); BARBITURATES Negative (Negative); BENZODIAZEPINES Negative (Negative); COCAINE Negative (Negative); METHADONE Negative (Negative); OPIATES Negative (Negative); PCP Negative (Negative); THC Negative (Negative)
[2019-06-16 04:55] LABS: BACTERIA-REFLEX >30 Many /HPF (None Seen); CASTS None Seen /LPF (None Seen); CRYSTALS None Seen /LPF (None Seen); MUCUS 4-6 Moderate strn/LPF (None Seen); SQUAMOUS 0-3 Few /LPF (0-3); URINE RBC 3-10 Few /HPF (0-2); URINE WBC-REFLEX >25 Many /HPF (0-5); WBC CLUMPS Moderate (None Seen)
[2019-06-16 05:22] LABS: ABSOLUTE BASOPHILS 0.1 thou/uL (0.0-0.2); ABSOLUTE EOSINOPHILS 0.3 thou/uL (0.0-0.7); ABSOLUTE LYMPHOCYTES 1.1 thou/uL (0.8-5.3); ABSOLUTE MONOCYTES 0.5 thou/uL (0.0-1.2); ABSOLUTE NEUTROPHILS 5.9 thou/uL (1.6-8.1); BASOPHILS 1.2 %; EOSINOPHILS 4.4 %; HEMATOCRIT 24.1 % (37.0-47.0); HEMOGLOBIN 7.8 gm/dL (12.0-15.0); LYMPHOCYTES 13.3 %; MCH 25.4 pg (26.0-34.0); MCHC 32.4 g/dL (28.0-37.0); MCV 78.4 fL (80.0-100.0); MONOCYTES 6.5 %; MPV 7.7 fl. (7.2-11.1); NUCLEATED RBCS 0 /100WBC; PLATELET COUNT* 493 thou/uL (150-400); POLYS 74.6 %; RBC 3.08 mil/uL (4.20-5.00); RDW-CV 17.4 % (10.5-14.5); WBC 7.9 thou/uL (4.0-11.0)
[2019-06-16 05:50] LABS: CALCIUM 9.7 mg/dL (8.5-10.1); CREATININE 0.9 mg/dL (0.6-1.3); POTASSIUM 3.4 mmol/L (3.5-5.1)
[2019-06-17] VITALS: BP 142/61
[2019-06-17 04:00] VITALS: BP 141/53
[2019-06-17 04:58] LABS: ABSOLUTE BASOPHILS 0.1 thou/uL (0.0-0.2); ABSOLUTE EOSINOPHILS 0.4 thou/uL (0.0-0.7); ABSOLUTE LYMPHOCYTES 1.3 thou/uL (0.8-5.3); ABSOLUTE MONOCYTES 0.5 thou/uL (0.0-1.2); ABSOLUTE NEUTROPHILS 7.3 thou/uL (1.6-8.1); BASOPHILS 1.2 %; HEMATOCRIT 25.4 % (37.0-47.0); HEMOGLOBIN 8.4 gm/dL (12.0-15.0); LYMPHOCYTES 13.5 %; MCH 25.4 pg (26.0-34.0); MCHC 33.2 g/dL (28.0-37.0); MCV 76.6 fL (80.0-100.0); MONOCYTES 5.7 %; MPV 7.7 fl. (7.2-11.1); NUCLEATED RBCS 0 /100WBC; PLATELET COUNT* 549 thou/uL (150-400); POLYS 75.6 %; RBC 3.31 mil/uL (4.20-5.00); RDW-CV 17.7 % (10.5-14.5); WBC 9.6 thou/uL (4.0-11.0)
[2019-06-17 05:16] LABS: CALCIUM 9.7 mg/dL (8.5-10.1); CREATININE 0.9 mg/dL (0.6-1.3); POTASSIUM 3.8 mmol/L (3.5-5.1)
[2019-06-17] MEDS ORDERED: DIFLUCAN200 MG PO (11:31)
[2019-06-17] MEDS ORDERED: IRON325 PO (11:37)
[2019-06-17 11:42] VITALS: BP 141/53
[2019-06-17 13:14] VITALS: BP 141/53
[2019-06-17 13:49] VITALS: BP 141/53
--- NOTE | 2019-06-18 12:20 | CON ---
[address] [address] CONSULTATION Name: PATRICEMIC Room: [address] IN .R.#: [id number] Admission: 06/15/19 Attend Phys: Sidney Cornell MD Discharge: 06/17/19 Date of : 41 Report #: [id number] THIS REPORT FOR: //name// CC: Nelly Cornell DICTATED BY: Munira Morris [facility] DATE OF SERVICE: 06/16/2019 Please note at the time of this dictation, the patient was seen and physically examined by myself. REASON FOR CONSULTATION: Epigastric pain. HISTORY OF PRESENT ILLNESS: This is a 74-year-old female who states that she has been having this ongoing epigastric or chest discomfort, which has worsened, but has been ongoing for probably 6 months. The patient has been taking ibuprofen on a regular basis to help with her back pain, but recently quit taking that. She also does take Eliquis for atrial fibrillation. She denies any nausea, vomiting, fever or chills. She denies any melanotic or bright red bloody stools. The patient did just get over being treated for C. diff in April after 3 rounds of antibiotics. ALLERGIES: MORPHINE, CODEINE AND PROPOXYPHENE. PAST MEDICAL HISTORY: Hypertension, GERD, frequent UTIs, history of C. diff and atrial fibrillation. MEDICATIONS: From home include sotalol and Eliquis, dicyclomine, Singulair, probiotic, Tylenol, Flexeril, Cardizem, Lasix, Cozaar, Protonix, Centrum, Advair. PAST SURGICAL HISTORY: Negative. FAMILY HISTORY: Negative for any GI or female cancers. SOCIAL HISTORY: Denies any tobacco, alcohol or illegal drug use. REVIEW OF SYSTEMS: Twelve-point review of systems is essentially negative except what is mentioned in the HPI. PHYSICAL EXAMINATION: VITAL SIGNS: Temperature 36.7, pulse 68, respirations 20, blood pressure 137/54[place] [address] CONSULTATION Name: ABBEYVIMIC Room: [address]#: [id number] Admission: 06/15/19 Attend Phys: Sidney Cornell MD Discharge: 06/17/19 Date of : 41 Report #: [id number] HEART: Regular rate and rhythm. LUNGS: Clear. ABDOMEN: Soft, positive bowel sounds in all 4 quadrants with epigastric tenderness noted to palpation. LABORATORY DATA: Hemoglobin on admission was 8.6, she is 7.8; white count on admission was 14, she is down to 7.9; platelets 493. GFR is 61. IMAGING STUDIES: She did have a CTA, which was negative for any PE and some emphysema changes noted in the left lower lobe. IMPRESSION: 1. Epigastric pain. 2. Anemia. 3. Nonsteroidal anti-inflammatory drug use. 4. Anticoagulant therapy, Eliquis, atrial fibrillation. 5. History of Clostridium difficile, treated 3 times in April secondary to frequent urinary tract infections. PLAN: 1. EGD today with Dr. Reyes. 2. Further recommendations to be made once the procedure has been performed. Thank you for allowing us to participate in this patient's care. Please do not hesitate to call with any questions in regard to this consult. Agree with above assessment and plan by Munira Morris <ELECTRONICALLY SIGNED> By: Femi Reyes MD 06/18/19 1220 1039 [id number] Reyes MD /nt
--- NOTE | 2019-06-19 10:16 | CON ---
[address] [address] CONSULTATION Name: MIC IBRAHIM Room: [address] .R.#: [id number] Admission: 06/15/19 Attend Phys: Sidney Cornell MD Discharge: 06/17/19 Date of : 41 Report #: [id number] THIS REPORT FOR: //name// CC: MD Sidney Dawson DATE OF SERVICE: 06/16/2019 CARDIOLOGY CONSULTATION HISTORY OF PRESENT ILLNESS: The patient is a 74-year-old single white female, who I was asked to see in the hospital today after she complained of chest pain. The patient states that she had a previous heart catheterization at [facility] in [place], [place], back in the and is found to have no significant coronary artery disease, but she was diagnosed with mitral valve prolapse. She has done well since that time. The patient has a history of sleep apnea, uses CPAP. She currently [place] by herself [place] the country outside of [place], [place]. She apparently fell off the couch and injured her foot. She was admitted to [facility] and found to have a foot fracture. She was placed in a cast and did not require surgery. She was discharged from [facility] after about 5 days, admitted to [facility] a month ago. There, she began to feel weak and had loose stools. She became confused. She was sent over to [facility] and admitted in April. She was diagnosed with C. difficile colitis. During her hospitalization, she went into atrial fibrillation and I was asked to see her in consultation. She converted to a sinus rhythm and she was switched from propranolol, which she had been on for hypertension to sotalol. She was also anticoagulated. After being treated, she was then discharged about a month ago to a senior living. She was discharged on Eliquis and sotalol. At the senior living, she has been doing rehab. Yesterday, she started to cough. She then noticed some epigastric discomfort that is worse if she coughed or took a deep breath. She denied the pain radiating down her arms. She denies any shortness of breath. Because of the epigastric pain, she was brought to the Emergency Room and admitted. The pain was not related to food. She had no belching. She had no further palpitations or bleeding. PAST MEDICAL HISTORY: Otherwise was significant for cholecystectomy, back surgery, tonsillectomy, sleep apnea, hypertension. She apparently had previous surgery on her liver at for a hemangioma. Her medications that she is on recently at the senior living included Eliquis, sotalol, diltiazem, Lasix, losartan, oxybutynin; she does have incontinence. ALLERGIES: SHE HAS AN ALLERGY TO CODEINE [place] [address] CONSULTATION Name: MIC IBRAHIM [address] [id number] Admission: 06/15/19 Attend Phys: Sidney Conrell MD Discharge: 06/17/19 Date of : 41 Report #: [id number] FAMILY HISTORY: She notes that her parents had heart disease. SOCIAL HISTORY: She is , [place], [place]. No smoking or alcohol abuse. REVIEW OF SYSTEMS: She has had no history of stroke or asthma. She does have a hiatal hernia. No history of kidney disease, cancer, psychiatric illness, chronic skin condition. PHYSICAL EXAMINATION: GENERAL: Elderly female, lying in bed, she appeared in no distress. VITAL SIGNS: She had a blood pressure of 100/60, pulse of 60. She is afebrile. HEENT: She is anicteric. Conjunctivae pink. Mucous membranes moist. CHEST: Clear to auscultation. CARDIAC: Regular rate and rhythm. No significant murmur. ABDOMEN: Soft. EXTREMITIES: Had no edema. SKIN: Cool and dry. NEUROLOGIC: Nonfocal. Her ECG on admission showed a sinus rhythm. There was nonspecific T-wave changes noted. Her workup, she actually had an echocardiogram done in April when she was here that showed ejection fraction 65%, aortic sclerosis, mild aortic insufficiency. She had a chest x-ray using a PE protocol last night that showed no pulmonary embolus, no aortic dissection. There was some atelectasis and evidence of COPD with a bleb. Her chest x-ray yesterday showed normal heart size, clear lung jenkins, elevated right hemidiaphragm. LABORATORY WORK: Sodium 141, creatinine 0.9. Liver function studies were normal. Troponins all 0.06. BNP 150. TSH 1.3. Her white blood cell count 7.9. Hemoglobin is down to 7.8, it was actually 12.9 in April. MCV 78, RDW 17. IMPRESSION AND RECOMMENDATIONS: 1. Epigastric pain. Atypical for angina. No evidence of acute coronary syndrome. Recommend no further cardiac evaluation. 2. History of atrial fibrillation. Stay in sinus rhythm on sotalol. I would continue anticoagulation. 3. Recent episode of Clostridium difficile colitis. 4. Recent foot fracture. 5. Hypertension. The patient is on ARB. 6. Sleep apnea. The patient uses CPAP. 7. Anemia. The patient's hemoglobin is now down to 7.8 from 12 in April. No [facility] [address] [place] [address] CONSULTATION Name: PATRICEMIC Zain Room: [address]#: [id number] Admission: 06/15/19 Attend Phys: Sidney Cornell MD Discharge: 06/17/19 Date of : 41 Report #: [id number] history of bleeding. I would consider taking the patient off of anticoagulation. <ELECTRONICALLY SIGNED> By: Narciso Holm MD, FACC 06/19/19 [id number] Holm MD, FACC /nt
== END 2019-06-17 15:23 | disposition home health service (06) | DRG 369 ==
LOC: M.ERS 11:23 → M.2W 14:47 → M.TBA-ER 14:47 → M.2W 18:48
PROVIDERS: Emergency Medicine Emergency Medical Services; Internal Medicine Cardiovascular Disease; ADMIT Internal Medicine
PROC: 0DB58ZX Excision of Esophagus, Via Natural or Artificial Opening Endoscopic, Diagnostic (ICD-10-PCS; principal; 2019-06-16)
PROC: 3E0234Z Introduction of Serum, Toxoid and Vaccine into Muscle, Percutaneous Approach (ICD-10-PCS; principal; 2019-06-16)
PROC: 0DB68ZX Excision of Stomach, Via Natural or Artificial Opening Endoscopic, Diagnostic (ICD-10-PCS; principal; 2019-06-16)
PROC: 5A09357 Assistance with Respiratory Ventilation, Less than 24 Consecutive Hours, Continuous Positive Airway Pressure (ICD-10-PCS; 2019-06-17)
DX: B37.81 Candidal esophagitis (principal); E44.0 Moderate protein-calorie malnutrition; D68.69 Other thrombophilia; I10 Essential (primary) hypertension; K21.9 Gastro-esophageal reflux disease without esophagitis; I48.91 Unspecified atrial fibrillation; I20.8 Other forms of angina pectoris; G47.30 Sleep apnea, unspecified; D72.829 Elevated white blood cell count, unspecified; D50.9 Iron deficiency anemia, unspecified; Z87.440 Personal history of urinary (tract) infections; Z79.899 Other long term (current) drug therapy; Z88.6 Allergy status to analgesic agent; Z88.8 Allergy status to other drugs, medicaments and biological substances; Z79.01 Long term (current) use of anticoagulants; Z90.49 Acquired absence of other specified parts of digestive tract; Z90.89 Acquired absence of other organs; Z99.81 Dependence on supplemental oxygen; Z82.49 Family history of ischemic heart disease and other diseases of the circulatory system; Z23 Encounter for immunization; Z68.31 Body mass index [BMI] 31.0-31.9, adult

== ENCOUNTER → 2021-07-11 | Outpatient (CLI) | payer OTHER ==
[~2021-07-11] MED LIST changes: +ADVAIR HFA 230M12 GM INH; +DIFLUCAN200 MG PO; +IRON325 PO
[2021-07-11 16:32] LABS: ABSOLUTE BASOPHILS 0.1 thou/uL (0.0-0.2); ABSOLUTE EOSINOPHILS 0.5 thou/uL (0.0-0.7); ABSOLUTE LYMPHOCYTES 1.5 thou/uL (0.8-5.3); ABSOLUTE MONOCYTES 0.4 thou/uL (0.0-1.2); ABSOLUTE NEUTROPHILS 5.4 thou/uL (1.6-8.1); BASOPHILS 1.5 %; EOSINOPHILS 6.1 %; HEMATOCRIT 38.5 % (37.0-47.0); HEMOGLOBIN 12.9 gm/dL (12.0-15.0); LYMPHOCYTES 19.2 %; MCH 27.1 pg (26.0-34.0); MCHC 33.5 g/dL (28.0-37.0); MCV 80.8 fL (80.0-100.0); MONOCYTES 5.5 %; MPV 7.8 fl. (7.2-11.1); NUCLEATED RBCS 0 /100WBC; PLATELET COUNT* 349 thou/uL (150-400); POLYS 67.7 %; RBC 4.76 mil/uL (4.20-5.00); RDW-CV 15.6 % (10.5-14.5)
[2021-07-11 16:43] LABS: INR 3.9; PROTIME 37.9 Seconds (9.20-11.50)
[2021-07-11 16:53] LABS: CALCIUM 9.2 mg/dL (8.5-10.1); CREATININE 1.3 mg/dL (0.6-1.3); POTASSIUM 4.2 mmol/L (3.5-5.1)
== END ==
LOC: M.RAD 14:55
PROVIDERS: ATTEND Nurse Practitioner
DX: I48.91 Unspecified atrial fibrillation (principal); K92.1 Melena; R06.02 Shortness of breath; M25.78 Osteophyte, vertebrae; Z79.01 Long term (current) use of anticoagulants

== ENCOUNTER → 2021-07-15 | Outpatient (CLI) | payer OTHER | LOC: M.LAB 12:11 | PROVIDERS: ATTEND Nurse Practitioner | DX: K92.1 Melena (principal); R06.02 Shortness of breath ==